=== PATIENT | male | born 1960 | race Caucasian/White ===

== ENCOUNTER 2021-01-13 22:18 | Emergency (ER) | payer BC ==
[~2021-01-13] VITALS: Ht 182.9 cm; Wt 99.8 kg
[~2021-01-13 22:18] MED LIST: MOME17SP NS
[2021-01-13 22:26] VITALS: BP_SYST 155
[2021-01-13] MEDS ORDERED: SULF1TAB48 PO (22:35)
[2021-01-13] MEDS ORDERED: SULFAMETHOXAZOLE/TRIMETHOPR DS 1 TABLET PO ONE (22:45)
[2021-01-13 23:08] VITALS: BP_SYST 132
== END 2021-01-13 23:08 | disposition home or self-care (01) ==
LOC: SED 22:18
DX: L02.414 Cutaneous abscess of left upper limb (principal); L03.114 Cellulitis of left upper limb; Z79.899 Other long term (current) drug therapy
CPT/HCPCS: 99283